=== PATIENT | female | born 1975 | race Two or more races ===

== ENCOUNTER 2017-12-01 12:43 | Outpatient (CLI) | payer OTHER | END 2017-12-01 16:37 | disposition home or self-care (01) | LOC: MAMO-SONO 12:43 | DX: Z12.31 Encounter for screening mammogram for malignant neoplasm of breast (principal); N60.01 Solitary cyst of right breast; N60.02 Solitary cyst of left breast ==

== ENCOUNTER 2018-02-17 12:30 | Outpatient (CLI) | payer OTHER | END 2018-02-17 12:37 | disposition home or self-care (01) | LOC: SONOGRAMA 12:30 | DX: N20.0 Calculus of kidney (principal) ==

== ENCOUNTER 2019-10-13 08:15 | Outpatient (CLI) | payer OTHER | END 2019-10-13 08:30 | disposition home or self-care (01) | LOC: MAMO-SONO 08:15 | PROVIDERS: ATTEND Obstetrics & Gynecology | DX: Z12.31 Encounter for screening mammogram for malignant neoplasm of breast (principal); N60.11 Diffuse cystic mastopathy of right breast; N60.12 Diffuse cystic mastopathy of left breast ==

== ENCOUNTER → 2019-11-13 11:12 | Outpatient (CLI) | payer OTHER | END | disposition home or self-care (01) | LOC: LAB 11:12 | PROVIDERS: ATTEND Obstetrics & Gynecology | DX: N92.1 Excessive and frequent menstruation with irregular cycle (principal) ==

== ENCOUNTER 2020-01-05 08:17 | Outpatient (CLI) | payer OTHER | END 2020-01-05 08:48 | disposition home or self-care (01) | LOC: SONOGRAMA 08:17 | DX: K21.9 Gastro-esophageal reflux disease without esophagitis (principal) ==

== ENCOUNTER 2020-11-22 09:02 | Outpatient (CLI) | payer OTHER | END 2020-11-22 09:20 | disposition home or self-care (01) | LOC: MAMO-SONO 09:02 | PROVIDERS: ATTEND Obstetrics & Gynecology | DX: N60.42 Mammary duct ectasia of left breast (principal); N60.41 Mammary duct ectasia of right breast; Z12.31 Encounter for screening mammogram for malignant neoplasm of breast; N60.11 Diffuse cystic mastopathy of right breast; N60.12 Diffuse cystic mastopathy of left breast ==

== ENCOUNTER 2023-06-04 07:55 | Outpatient (CLI) | payer OTHER | END 2023-06-04 07:58 | disposition home or self-care (01) | LOC: MAMO-SONO 07:55 | PROVIDERS: ATTEND Obstetrics & Gynecology | DX: N60.11 Diffuse cystic mastopathy of right breast (principal); N60.12 Diffuse cystic mastopathy of left breast; Z12.31 Encounter for screening mammogram for malignant neoplasm of breast ==

== ENCOUNTER → 2025-01-19 07:37 | Outpatient (CLI) | payer OTHER | END | disposition home or self-care (01) | LOC: MAMO-SONO 07:37 | PROVIDERS: ATTEND Obstetrics & Gynecology | DX: N60.11 Diffuse cystic mastopathy of right breast (principal); N60.12 Diffuse cystic mastopathy of left breast; Z12.31 Encounter for screening mammogram for malignant neoplasm of breast ==